=== PATIENT | male | born 1990 | race Caucasian/White ===

== ENCOUNTER 2020-05-05 01:37 | Emergency (ER) | payer OTHER, SELFPAY ==
[2020-05-05 01:55] VITALS: BP 129/64; PULSE 91; RESP 18; TEMP 36.8; O2SAT 98; BMI 23.8
--- NOTE | 2020-05-05 03:07 | ED.EXTPRO ---
HPI - Extremity Problem General Chief complaint: Extremity Problem Stated complaint: Villafana bite Time Seen by Provider: 05/05/20 03:07 Source: patient Mode of arrival: ambulatory History of Present Illness HPI Narrative: This is a 29-year-old male who presents with bilateral hand swelling and redness and states that [place] was frequently texting and did not use gloves. Patient states that his fingers feel like they are throbbing but otherwise denies any motor dysfunction in bilateral hands. He denies being homeless and states he has a home as well as a car. Related Data Allergies Allergy/AdvReac Type Severity Reaction Status Date / Time No Known Allergies Allergy Unverified 05/05/20 02:32 Review of Systems Review of Systems: Pertinent positives and negatives as stated in HPI 10 point review of systems otherwise negative. COUNTS INCLUDE 234 BEDS AT THE [facility] Past Medical History Source: nursing notes reviewed Social History Social History Alcohol intake: current Alcohol intake frequency: a few times a month Smoking Status: Current every day smoker Use of substances other than those prescribed or required for medical reasons: Yes Substance Use Type: Crack/Cocaine Substance Use Frequency: Chronic Longstanding Last Used Substance: Days (ago) Advance Directives: No Advance Directives Information Provided: No Physical Exam Vital Signs: Vital Signs: Last Vital Signs Temp 98.3 F 05/05/20 01:55 Pulse 91 05/05/20 01:55 Resp 18 05/05/20 01:55 BP 129/64 05/05/20 01:55 Pulse Ox 98 05/05/20 01:55 Body Mass Index 23.8 VITAL SIGNS: Reviewed. GENERAL: Well developed, well nourished, in no acute distress. LUNGS: Normal breath sounds. SpO2<98> CARDIOVASCULAR: Regular rate and rhythm without noted murmurs ABDOMEN: Soft, non-tender, non-distended with bowel sounds. BILATERAL HANDS: Mild erythema and swelling to entire hand without noted quite areas, capillary refill less than 3 seconds, full range of motion intact at wrist and all finger joints. NEUROLOGIC: Alert and oriented x 4. Strength and sensation to light touch were grossly intact x 4. Course Course Course Narrative: Frostbite, first-degree bilateral hands. Patient extensively counseled regarding wearing gloves as well as frequent checks especially given the projected weather conditions. Patient was confirmed to have a home and gloves at home as well as transportation with a working heater in the vehicle. Discharge Plan Discharge Clinical Impression: Frostbite of both hands Patient Disposition: Home, Self-Care Instructions: Frostbite (ED) Additional Instructions: Both of your hands were evaluated today and determined to have villafana nip (frostbite, first-degree). Please utilize gloves whenever possible and exercise extreme caution, and check your hands often. Recommend using [id number] Tylenol/ibuprofen for pain control. Please follow-up with your primary care provider for re-evaluation. Do not hesitate to return to the emergency department should you experience any worsening of your symptoms. Referrals: Physician,Unknown [Primary Care Provider] - 2 days Interventions: ED Discharge Assessment Last Done: 05/05/20 03:11 Discharge Date/Time: 05/05/20 03:19
== END 2020-05-05 03:19 | disposition home or self-care (01) ==
PROVIDERS: Emergency Provider Student in an Organized Health Care Education/Training Program
DX: T33.522A Superficial frostbite of left hand, initial encounter (principal); T33.521A Superficial frostbite of right hand, initial encounter; X31.XXXA Exposure to excessive natural cold, initial encounter; F17.200 Nicotine dependence, unspecified, uncomplicated; Y93.31 Activity, mountain climbing, rock climbing and wall climbing; Y92.828 Other wilderness area as the place of occurrence of the external cause; Y99.9 Unspecified external cause status
CPT/HCPCS: 99282; 99284

== ENCOUNTER 2021-10-03 08:31 | Emergency (ER) | payer MEDICAID, SELFPAY ==
[2021-10-03 08:37] VITALS: BP 162/75; PULSE 100; RESP 19; TEMP 36.6; O2SAT 99; BMI 24.3
[2021-10-03 09:29] LABS: MANUAL DIFF FLAG NO
--- NOTE | 2021-10-03 09:36 | PC.NURSE ---
@ 2640 ARCHANA HAN REQUESTS CALL OUT TO [facility] PT [place] LINE FOR ED TO ED TRANSFER D/T SNAKE BITE ANTI-VENOM NEED, WE DO NOT HAVE HERE @ [facility] THOM ANSWERS AND ASKS TO SPEAK WITH GUILLE HAN TAKES OVER CALL RIGHT AWAY
[2021-10-03 09:41] LABS: Basophils Absolute Auto 0.1 X10*3/uL (0.0-0.2); Basophils Percent Auto 0.4 % (0-2); Fibrinogen 425 MG/DL (259-690); Hematocrit 42.1 % (42.0-52.0); Hemoglobin 14.3 g/dl (14.0-18.0); INTERNATIONAL NORM RATIO 1.1 (0.9-1.1); Imm Gran Abs Auto 0.05 X10*3/uL (0.00-0.03); Imm Gran Pct Auto 0.4 % (0.0-0.4); Lymphocytes Absolute Auto 1.3 X10*3/uL (1.2-4.9); Lymphocytes Percent Auto 9.7 % (20-40); Mean Corpuscular Hemoglobin 28.1 pg (27.0-33.0); Mean Corpuscular Volume 82.7 fL (80.0-98.0); Monocytes Absolute Auto 0.9 X10*3/uL (0.1-1.2); Monocytes Percent Auto 6.6 % (2-11); Neutrophils Absolute Auto 11.3 x10*3/uL (2.0-8.3); Neutrophils Percent Auto 82.9 % (45-73); Platelet Count 224 X10*3/uL (160-400); Prothrombin Time 12.9 SEC (10.0-13.1); Red Blood Count 5.09 X10*6/uL (4.60-5.80); Red Cell Distribution Width 13.7 % (11.0-16.0); White Blood Count 13.6 X10*3/uL (4.8-10.8)
[2021-10-03 09:43] LABS: D Dimer High Sensitivity 1765 NG/ML
[2021-10-03 09:48] LABS: Alanine Aminotransferase 20 U/L (0-40); Albumin Level 4.9 g/dL (3.5-5.0); Alkaline Phosphatase 72 U/L (39-117); Anion Gap 15 (12-20); Aspartate Amino Transferase 33 U/L (5-37); Blood Urea Nitrogen 18 mg/dL (9-16); Calcium 9.8 mg/dL (8.4-10.2); Carbon Dioxide 23 mmol/L (22-29); Chloride 102 mmol/L (96-108); Creatinine Clr Calc Pharmacy 100.4; Estimated Glomerular Filt Rate > 60; Glucose Random 89 mg/dL (60-115); Potassium 4.4 mmol/L (3.3-5.1); Sodium 136 mmol/L (135-145); Total Protein 7.8 g/dL (6.5-8.0)
--- NOTE | 2021-10-03 09:48 | ED_ITS ---
HPI - General Adult General Chief complaint: General Medical Stated complaint: bit by snake/leg swollen Time Seen by Provider: 10/03/21 08:47 Source: patient Mode of arrival: ambulatory Limitations: no limitations History of Present Illness HPI narrative: 31-year-old male with no significant past medical history presents for sustaining a snake bite to his lateral right ankle at 03:00 this morning. Patient was sleeping outside, and was in [facility]. Patient had sudden pain to the area, and heard something slip during away. Patient states he is up-to-date on his tetanus Patient has pain in his right ankle, pain swelling and redness extending up his calf, rapidly progressing swelling He is not short of breath, no wheezing, no lip swelling, no chest pain, no abdominal pain, no nausea, no vomiting Related Data Allergies Allergy/AdvReac Type Severity Reaction Status Date / Time No Known Allergies Allergy Unverified 05/05/20 02:32 Review of Systems Constitutional: Constitutional: Denies body ache(s), Denies chills, Denies fatigue, Denies fever(s), Denies headache(s), Denies malaise and Denies weakness Eyes: Eyes: Denies diplopia ENT: Denies vertigo, Denies dizziness, Denies otalgia, Denies headache(s), Denies mouth pain, Denies post nasal drip, Denies sinus pain, Denies sinus pressure, Denies sore throat and Denies throat swelling Cardiovascular: Cardiovascular: Denies chest pain, Denies syncope, Denies leg edema, Denies lightheadedness, Denies Loss of Consciousness, Denies palpitations and Denies dyspnea Respiratory: Respiratory: Denies chest congestion, Denies cough and Denies dyspnea Gastrointestinal: Gastrointestinal: Denies abdominal pain, Denies hematochezia, Denies constipation, Denies diarrhea, Denies nausea and Denies vomiting Musculoskeletal: Musculoskeletal: Denies deformity, Reports arthralgias, Reports joint swelling, Denies muscle weakness, Reports radiating pain into limb and Reports tingling Integumentary/Breasts: Skin/Breast: Reports swelling, Reports erythema and Reports wounds Neurologic: Denies confusion, Denies vertigo, Denies dizziness, Denies syncope, Denies headache(s), Reports tingling and Denies weakness Psychiatric: Psychiatric: Denies anxiety, Denies confusion and Denies depression Endocrine: Endocrine: Denies fatigue and Denies palpitations Allergic/Immunologic: Allergic/Immunologic: Denies throat swelling PMFSH Social History Social History Alcohol intake: current Alcohol intake frequency: a few times a month Substance Use Type: Crack/Cocaine Advance Directives: No Advance Directives Information Provided: No Physical Exam ED Vital Signs: Vital Signs - 24 hr 10/03/21 08:37 Temperature 98 F Pulse Rate 100 Respiratory Rate 19 Blood Pressure 162/75 H Pulse Oximetry 99 Oxygen Delivery Method Room Air BMI result Body Mass Index 24.3 Const General: No confusion Nutritional Appearance: well nourished Orientation/consciousness: No confusion Limitations: no limitations HENMT Head: Yes normal to inspection, Yes normocephalic and Yes atraumatic Ears: hearing grossly normal bilaterally and external ears normal General nose exam: Normal external nose present Face and sinus: Yes normal facial exam Mouth: Normal oral and palatal mucosa present Throat: Yes posterior oropharynx normal Eyes Conjunctivae: conjunctivae normal Pupils: Equal, round and reactive pupils present EOM: EOMs intact bilaterally Neck Neck: Yes full ROM, Yes no lymphadenopathy and Yes supple Resp Effort & Inspection: normal respiratory effort and able to speak in complete sentences Auscultation: clear to auscultation bilaterally, no crackles, no rales, no rhonchi and no wheezes Cardio Rate: regular rate Rhythm: regular rhythm Heart sounds: S1 normal heart sound present and S2 normal heart sound present GI Inspection: Yes normal to inspection Palpation (GI): Soft to palpation, nontender, no guarding and not rigid Percussion: Yes normal to percussion Auscultation: normal bowel sounds Skin Other: Erythematous, swollen, warm, and tender to palpate bilateral right ankle and right calf Neuro General: No confusion Cranial nerves: Yes Equal, round and reactive pupils present Extrem Right lower extremity: full ROM, normal capillary refill, edema Details: non-pitting and 2+, lower leg Details: tenderness, non-pitting edema Details: 1+ and warmth; no crepitus and ankle Details: tenderness (Soft tissue swelling entire right ankle) Location: of the lateral malleolus and of the medial malleolus, warmth and penetrating wound (Puncture wounds to right lateral ankle); no cyanosis Psych Appearance: grossly normal Affect: normal affect Attitude: cooperative Thought process: Normal thought process present Course Course Course Narrative: 31-year-old male who was sitting outside and felt sudden pain in his right lateral ankle at 03:00 this morning, and heard a snake slithering away. On exam, patient has puncture harrell to right lateral ankle, right ankle is swollen, warm, tender to palpate, with intact pulses, good perfusion, reduced range of motion. No necrosis, no bleeding There is pain and swelling progressing up right lateral calf, patient has tender and swollen right inguinal lymph nodes. On initial exam at 09:15, patient's right ankle was 28.5 cm in diameter compared to left ankle which was 25 cm in diameter Got CPK, chemistries, hematology, coags including PT INR, PTT, D-dimer, and fibrinogen. Called poison Control, who consulted with Dr. Jalloh, stock blender, who recommended finding the near source of anti venom. Dr. Jalloh recommends Crotalid anti venom. Our pharmacy does not have this. Calls placed to [facility] pharmacy reveals that [facility] has CroFAb. Called back to poison Control confirms that this anti venom Crofab will treat [place] snake bites, and is recommended for [place] or snake bite, which most likely is what the patient has. On reexamination, patient continues to have stable vitals, is not short of breath but does feel anxious, right ankle now at 09:30 is 28.5 cm, measurements up the right calf are 24.5 cm, 31.5 cm, and 10 cm inferior from his right tibial tuberosity calf is 28 cm, left calf in same location is also 28 cm. Patient has an elevated D-dimer of 1765, PT INR are normal, PTT is normal, CPK 493. Fibrin is normal. White blood cell count 13.6 Labs indicate that this is truly snake bite Dr Ahn, [facility] ED, will accept patient Dr Gómez helped me transfer patient, pt is being transferred emergently to [facility] Patient did not want any pain meds On reexamination, right lateral leg is more erythematous and warm, but no significant swelling increase. At 10:05, right ankle is 29 cm, it was 28.5 cm 1 hour ago, all other measurements on patient's right leg are the same as they were 40 minutes ago EMS here, will transfer pt to [facility] Medical Decision Making Lab Data Result diagrams: 10/03/21 09:25 10/03/21 09:25 Labs: Lab Results 10/03/21 10/03/21 10/03/21 Range/Units 09:25 09:25 09:25 WBC 13.6 H (4.8-10.8) X10*3/uL RBC 5.09 (4.60-5.80) X10*6/uL Hgb 14.3 (14.0-18.0) g/dl Hct 42.1 (42.0-52.0) % MCV 82.7 (80.0-98.0) fL MCH 28.1 (27.0-33.0) pg MCHC 34.0 (31.0-36.0) g/dl RDW 13.7 (11.0-16.0) % Plt Count 224 (160-400) X10*3/uL MPV 10.0 (9.4-12.4) fL Immature Gran % (Auto) 0.4 (0.0-0.4) % Neut % (Auto) 82.9 H (45-73) % Lymph % (Auto) 9.7 L (20-40) % [place] % (Auto) 6.6 (2-11) % Eos % (Auto) 0.0 (0-4) % Baso % (Auto) 0.4 (0-2) % Lymph # (Auto) 1.3 (1.2-4.9) X10*3/uL [place] # (Auto) 0.9 (0.1-1.2) X10*3/uL Eos # (Auto) 0.0 (0.0-0.4) X10*3/uL Baso # (Auto) 0.1 (0.0-0.2) X10*3/uL Abs Immat Gran (auto) 0.05 H (0.00-0.03) X10*3/uL Absolute Neuts (auto) 11.3 H (2.0-8.3) x10*3/uL Absolute Nucleated RBC 0.000 (0.0-0.012) X10*3/uL Nucleated RBC % (auto) 0.0 (0.0-0.2) /100WBC PT 12.9 (10.0-13.1) SEC INR 1.1 (0.9-1.1) APTT 33.0 (24.1-38.0) SEC Fibrinogen 425 (259-690) MG/DL D-Dimer High Sensitivty 1765 NG/ML Sodium 136 (135-145) mmol/L Potassium 4.4 (3.3-5.1) mmol/L Chloride 102 (96-108) mmol/L Carbon Dioxide 23 (22-29) mmol/L Anion Gap 15 (12-20) BUN 18 H (9-16) mg/dL Creatinine 1.08 (0.5-1.4) mg/dL Estim Creat Clear Calc 100.4 Estimated GFR > 60 Random Glucose 89 (60-115) mg/dL Calcium 9.8 (8.4-10.2) mg/dL Total Bilirubin 1.0 (0.0-1.0) mg/dL AST 33 (5-37) U/L ALT 20 (0-40) U/L Alkaline Phosphatase 72 (39-117) U/L Total Creatine Kinase (38-174) U/L Total Protein 7.8 (6.5-8.0) g/dL Albumin 4.9 (3.5-5.0) g/dL 10/03/21 Range/Units 09:37 WBC (4.8-10.8) X10*3/uL RBC (4.60-5.80) X10*6/uL Hgb (14.0-18.0) g/dl Hct (42.0-52.0) % MCV (80.0-98.0) fL MCH (27.0-33.0) pg MCHC (31.0-36.0) g/dl RDW (11.0-16.0) % Plt Count (160-400) X10*3/uL MPV (9.4-12.4) fL Immature Gran % (Auto) (0.0-0.4) % Neut % (Auto) (45-73) % Lymph % (Auto) (20-40) % [place] % (Auto) (2-11) % Eos % (Auto) (0-4) % Baso % (Auto) (0-2) % Lymph # (Auto) (1.2-4.9) X10*3/uL [place] # (Auto) (0.1-1.2) X10*3/uL Eos # (Auto) (0.0-0.4) X10*3/uL Baso # (Auto) (0.0-0.2) X10*3/uL Abs Immat Gran (auto) (0.00-0.03) X10*3/uL Absolute Neuts (auto) (2.0-8.3) x10*3/uL Absolute Nucleated RBC (0.0-0.012) X10*3/uL Nucleated RBC % (auto) (0.0-0.2) /100WBC PT (10.0-13.1) SEC INR (0.9-1.1) APTT (24.1-38.0) SEC Fibrinogen (259-690) MG/DL D-Dimer High Sensitivty NG/ML Sodium (135-145) mmol/L Potassium (3.3-5.1) mmol/L Chloride (96-108) mmol/L Carbon Dioxide (22-29) mmol/L Anion Gap (12-20) BUN (9-16) mg/dL Creatinine (0.5-1.4) mg/dL Estim Creat Clear Calc Estimated GFR Random Glucose (60-115) mg/dL Calcium (8.4-10.2) mg/dL Total Bilirubin (0.0-1.0) mg/dL AST (5-37) U/L ALT (0-40) U/L Alkaline Phosphatase (39-117) U/L Total Creatine Kinase 493 H (38-174) U/L Total Protein (6.5-8.0) g/dL Albumin (3.5-5.0) g/dL Discharge Plan Discharge Clinical Impression: Bite, snake, venomous Patient Disposition: Xfer Other Transfer Details: [facility], ED to ED, Dr Ahn accepting
--- NOTE | 2021-10-03 09:58 | PC.NURSE ---
puncture/bite area cleaned w soap and water
--- NOTE | 2021-10-03 09:58 | PC.NURSE ---
@ [id number] [facility] CALLED FOR BLS 911/EMERGENT TX TO [facility] FOR SNAKE BITE ANTI VENOM RALPH ANSWERS AND GIVES A 5 MINUTE ETA ACCEPTING MD IS DR BARRERA @ [facility] ER PER DR MYERS
--- NOTE | 2021-10-03 10:07 | PC.NURSE ---
[facility] HERE FOR TX AT THIS TIME, DR MYERS GIVING THEM REPORT
[2021-10-03 10:10] VITALS: BP 150/74; PULSE 85; RESP 16; TEMP 36.5; O2SAT 100
== END 2021-10-03 10:30 | disposition other institution (70) ==
PROVIDERS: Physician Assistant; Emergency Provider Emergency Medicine Emergency Medical Services
DX: T63.001A Toxic effect of unspecified snake venom, accidental (unintentional), initial encounter (principal); S91.031A Puncture wound without foreign body, right ankle, initial encounter; M25.571 Pain in right ankle and joints of right foot; R60.0 Localized edema; Y92.017 Garden or yard in single-family (private) house as the place of occurrence of the external cause; Y93.89 Activity, other specified; Y99.9 Unspecified external cause status
CPT/HCPCS: 36415; 80053; 82550; 85025; 85379; 85384; 85610; 85730; 99284; 99285